=== PATIENT | female | born 1950 | race Caucasian/White ===

== ENCOUNTER 2022-09-19 08:11 | Day surgery (SDC) | payer BC, MEDICARE ==
[~2022-09-19 08:11] MED LIST: Lactated Ringers 1,000 ML IV SCH; Lidocaine 1%/Sod Bicarbonate in NS 8.4% 1 ML Syringe IDERM PRN; Sodium Chloride 0.9% 10 ML Syringe FLUSH PRN; Sodium Chloride 0.9% 10 ML Syringe FLUSH SCH
[2022-09-19] MEDS ORDERED: Vancomycin 1 GM SDV ONE (10:08)
[2022-09-19] MEDS ORDERED: EPINEPHrine 1 MG/ML SDV ONE (10:12)
[2022-09-19] MEDS ORDERED: Ropivacaine 0.5% 5 MG/ML 30 ML SDV ONE (10:12)
[2022-09-19] MEDS ORDERED: fentaNYL 100 MCG/2 ML SDV ONE (10:17)
[2022-09-19] MEDS ORDERED: Ondansetron 4 MG/2 ML SDV ONE (10:17)
[2022-09-19] MEDS ORDERED: Midazolam 1 MG/ML 2 ML SDV ONE (10:18)
[2022-09-19] MEDS ORDERED: Albuterol 0.083% 2.5 MG/3 ML Neb Soln NEB ONE (10:45)
[2022-09-19] MEDS ORDERED: Propofol 200 MG/20 ML SDV ONE ×2 (11:04→11:57)
[2022-09-19] MEDS ORDERED: Phenylephrine HCl In 0.9% NaCl 1 MG/10 ML Vial ONE (11:24)
[2022-09-19] MEDS ORDERED: Dexamethasone 4 MG/ML 5 ML MDV ONE (11:30)
[2022-09-19] MEDS ORDERED: Lactated Ringers 1,000 ML ONE (11:37)
[2022-09-19] MEDS ORDERED: Clindamycin Phosphate in D5W 900 MG in Premix Bag 1 BAG IV ONE ×2 (12:00)
[2022-09-19] MEDS ORDERED: ePHEDrine 50 MG/ML SDV ONE (12:20)
[2022-09-19] MEDS ORDERED: Ondansetron 4 MG/2 ML SDV IVPUSH PRN (12:33)
[2022-09-19] MEDS ORDERED: HYDROmorphone 0.5 MG/0.5 ML Syringe IVPUSH PRN (12:33)
[2022-09-19] MEDS ORDERED: fentaNYL 100 MCG/2 ML SDV IVPUSH PRN (12:33)
== END 2022-09-19 15:01 | disposition home or self-care (01) ==
LOC: JD.SDS 08:11
PROVIDERS: ATTEND Orthopaedic Surgery
DX: M19.012 Primary osteoarthritis, left shoulder (principal); E03.9 Hypothyroidism, unspecified; F32.9 Major depressive disorder, single episode, unspecified; R31.29 Other microscopic hematuria; I10 Essential (primary) hypertension; F17.210 Nicotine dependence, cigarettes, uncomplicated; Z79.899 Other long term (current) drug therapy; Z98.890 Other specified postprocedural states; Z90.710 Acquired absence of both cervix and uterus; Z79.890 Hormone replacement therapy; Z88.0 Allergy status to penicillin; Z88.2 Allergy status to sulfonamides; Z79.82 Long term (current) use of aspirin
CPT/HCPCS: 23472; 36415; 73020; 76000; 85610; 85730; 97166; 97535; C1713; C1769; C1776; J0171; J1100; J2250; J2405; J2704; J2795; J3010; J3370; J3490; J7120; 01638; 64415; 76942; 99100

== ENCOUNTER 2025-02-10 08:42 | Day surgery (SDC) | payer MEDICARE, MEDICAID ==
[~2025-02-10 08:42] MED LIST changes: +EPINEPHRINE PRN; +KETOROLAC PRN; -Lidocaine 1%/Sod Bicarbonate in NS 8.4% 1 ML Syringe IDERM PRN; +MORPHINE PRN; +Morphine 8 MG, EPINEPHrine 0.3 MG, Cefuroxime 750 MG, Ketorolac 30 MG, Sodium Chloride ... PRN; +SODIUM CHLORIDE 0.9% PRN; +[UNRECOGNIZED DRUG - OTHER] PRN
[2025-02-10] MEDS: Acetaminophen 325 MG Tab PO ONE (10:32)
[2025-02-10] MEDS: oxyCODONE ER 10 MG TAB.ER PO ONE (10:32)
[2025-02-10] MEDS: Pregabalin 25 MG Cap PO ONE (10:32)
[2025-02-10] MEDS: Clindamycin Phosphate in D5W 900 MG in Premix Bag 1 BAG IV ONE (10:33)
[2025-02-10 11:40] LABS: ANION GAP 11.1 (5-15); BUN/CREATININE RATIO 7.5 (14-18); CALCIUM 9.2 mg/dL (8.5-10.1); CREATININE 0.8 mg/dL (0.55-1.02); EST CRCL DRUG DOSING (CG) 47.6 mL/min; POTASSIUM,K 5.1 mEq/L (3.5-5.1)
[2025-02-10] MEDS ORDERED: Midazolam 1 MG/ML 2 ML SDV ONE (11:42)
[2025-02-10] MEDS ORDERED: Propofol 200 MG/20 ML SDV ONE (11:42)
[2025-02-10] MEDS: Albuterol 0.083% 2.5 MG/3 ML Neb Soln NEB ONE (11:49)
[2025-02-10] MEDS ORDERED: Lactated Ringers 1,000 ML IV ONE ×2 (12:15→13:30)
[2025-02-10] MEDS ORDERED: Dexamethasone 4 MG/ML 5 ML MDV ONE (12:39)
[2025-02-10] MEDS ORDERED: Ropivacaine 0.5% 5 MG/ML 30 ML SDV ONE (12:39)
[2025-02-10] MEDS ORDERED: Phenylephrine 1% 10 MG/ML SDV ONE (12:39)
[2025-02-10] MEDS ORDERED: Ondansetron 4 MG/2 ML SDV IVPUSH PRN (12:49)
[2025-02-10] MEDS ORDERED: fentaNYL 100 MCG/2 ML SDV IVPUSH PRN (12:49)
[2025-02-10] MEDS ORDERED: HYDROmorphone 0.5 MG/0.5 ML Syringe IVPUSH PRN (12:49)
[2025-02-10] MEDS: Morphine 8 MG, EPINEPHrine 0.3 MG, Ketorolac 30 MG, Sodium Chloride 0.9% 7.9 ML PRN (13:50)
[2025-02-10] MEDS: Triamcinolone Acetonide 40 MG/ML 1 ML SDV ONE (13:50)
[2025-02-10] MEDS: Tranexamic Acid 1,000 MG/10 ML Vial ONE (13:50)
[2025-02-10] MEDS: Bupivacaine 0.25% 10 ML SDV ONE (13:50)
[2025-02-10] MEDS: VANCOmycin 1 GM SDV ONE (13:50)
[2025-02-10] MEDS: oxyCODONE 5 MG Tab PO ONE (15:18)
[2025-02-10] MEDS ORDERED: Acetaminophen 325 MG Tab PO PRN (17:49)
[2025-02-10] MEDS ORDERED: oxyCODONE 5 MG Tab PO PRN (17:49)
[2025-02-10] MEDS ORDERED: atorvaSTATin 20 MG Tab PO SCH (21:00)
[2025-02-11] MEDS: Pantoprazole 40 MG Tab.CR PO SCH (05:15)
[2025-02-11] MEDS: Levothyroxine 112 MCG Tab PO SCH (05:15)
[2025-02-11] MEDS: Ferrous Sulfate 324 MG Tab.EC PO SCH (06:31)
[2025-02-11] MEDS: Lisinopril 10 MG Tab PO SCH (08:51)
[2025-02-11] MEDS: Aspirin 325 MG Tab.EC PO SCH (08:51)
[2025-02-11] MEDS: Cyproheptadine 4 MG Tab PO SCH (08:52)
[2025-02-11] MEDS ORDERED: atorvaSTATin 20 MG Tab PO SCH (21:00)
== END 2025-02-11 14:30 | disposition home or self-care (01) ==
LOC: JD.SDS 08:42 → JD.MS 17:40 → JD.SDS 02-11 14:30
PROVIDERS: ATTEND Orthopaedic Surgery
DX: M17.0 Bilateral primary osteoarthritis of knee (principal); E87.1 Hypo-osmolality and hyponatremia; F32.A Depression, unspecified; I10 Essential (primary) hypertension; F17.210 Nicotine dependence, cigarettes, uncomplicated; Z88.0 Allergy status to penicillin; Z88.2 Allergy status to sulfonamides; Z79.82 Long term (current) use of aspirin; Z79.899 Other long term (current) drug therapy; Z79.890 Hormone replacement therapy
CPT/HCPCS: 0055T; 20610; 27447; 36415; 64447; 73560; 80048; 97110; 97116; 97161; A9270; C1713; C1776; J0171; J0665; J0736; J1100; J1885; J2250; J2272; J2371; J2704; J2795; J3301; J7120; 01402; 99100; J3490